=== PATIENT | male | born 1995 | race American Indian/Alaskan Native ===

== ENCOUNTER 2017-10-17 12:27 | Emergency (ER) | payer OTHER ==
[2017-10-17 12:37] VITALS: BP 152/86
[2017-10-17] MEDS ORDERED: BICILLIN L-A IM ONE (13:07)
--- NOTE | 2017-10-17 13:12 | Emergency Department Report ---
ED Rash HPI - HPI Chief Complaint: Skin Rash Stated Complaint: RASH Time Seen by Provider: 10/17/17 12:53 Duration: 3 Days Location: Other (first noticed a papular rash on his bilateral forearms but now has a rash on his groin as well) Suspected Cause: Unknown Rash Symptoms: No Itching, No Facial Swelling, No Tongue/Oral Swelling, No Breathing Difficulties, No Choking Sensation, No Wheezing/Dyspnea, No Peeling, No Blistering, No Fever Other History: Patient is a 22-year-old FF Mart[employer] male homosexual who presented with a painless nonpruritic rash on the forearms as well as his groin including the shaft of the penis. ED Review of Systems ROS: Stated complaint: RASH Other details as noted in HPI Comment: All other systems reviewed and negative ED Past Medical Hx - Past Medical History Previous Medical History?: No - Surgical History Additional Surgical History: toe surgery - Social History Smoking Status: Current Every Day Smoker Substance Use Type: Marijuana - Medications Home Medications: Home Medications Medication Instructions Recorded Confirmed Last Taken Type Triamcinolone 0.1% [Kenalog 0.1% 1 applic TP TID #30 g 10/17/17 Unknown Rx CREAM] Rash Exam - Exam General: Vital signs noted. No distress. Alert and acting appropriately. HEENT: No Periorbital Edema, No Conjuctival Injection, No Chemosis, No Perioral Edema, No Tongue Edema, No Uvular Edema, No Compromised Airway, No Drooling Lungs: Yes Good Air Exchange (Normal Breath Sounds), No Wheezes, No Ronchi, No Stridor, No Cough, No Labored Respirations, No Retractions, No Use of Accessory Muscles, No Other Abnormal Lung Sounds Heart: Yes Regular, No Murmur Skin: Yes Maculopapular Rash (location of the papular rashes on the forearms as well as in the groin. Patient has small papules nonpruritic and nonpainful on the scrotum as well as the shaft of the penis.), No Tenderness, No Erythema, No Edema, No Encrustations Other: Positive: Abdomen Normal, Neurologic Normal, Musculoskeletal Normal ED Course Vital Signs 10/17/17 12:36 Temperature 98.7 F Pulse Rate 100 H Respiratory 18 Rate Blood Pressure 152/86 O2 Sat by Pulse 100 Oximetry ED Medical Decision Making - Medical Decision Making Patient will be prescribed triamcinolone cream for rash will also have a RPR sent patient empirically treated for possible syphilis Critical care attestation.: If time is entered above; I have spent that time in minutes in the direct care of this critically ill patient, excluding procedure time. ED Disposition Clinical Impression: Dermatitis Disposition: [id number] TO HOME OR SELFCARE Is pt being admited?: No Does the pt Need Aspirin: No Condition: Stable Instructions: Acute Rash (ED) Prescriptions: Triamcinolone 0.1% [Kenalog 0.1% CREAM] 1 applic TP TID #30 g Referrals: [facility] [Outside] - 3-5 Days
== END 2017-10-17 13:49 | disposition home or self-care (01) ==
LOC: ED 12:27
DX: L30.9 Dermatitis, unspecified (principal); F17.200 Nicotine dependence, unspecified, uncomplicated; F12.10 Cannabis abuse, uncomplicated
CPT/HCPCS: 36415; 86592; 86593; 86780; 96372; 99283; J0561